=== PATIENT | female | born 1975 | race Caucasian/White ===

== ENCOUNTER 2021-03-29 19:58 | Emergency (ER) | payer OTHER ==
[2021-03-29] MEDS ORDERED: Acetaminophen 650 MG Supp RECTAL ONE (20:11)
--- NOTE | 2021-03-29 20:12 | EDM.PDOC ---
ED HPI GENERAL MEDICAL PROBLEM - General Chief Complaint: General Stated Complaint: LIGHTHEADED, DIZZY Time Seen by Provider: 03/29/21 20:05 Source of Information: Reports: Patient, RN Notes Reviewed - History of Present Illness INITIAL COMMENTS - FREE TEXT/NARRATIVE: Nedra presents today for complaints of generalized body aches, weakness, not able to do anything because she feels so bad. She also reports nausea, vomiting off and on the past 3 to 5 days. She was seen in [facility] on 02/19/2021 for exposure to COVID. Patient states she is so weak she almost passed out when presenting to the emergency room. Patient was assisted to a wheelchair and to room. No respiratory distress noted, respirations even and unlabored, skin/lips pink with no sign fo cyanosis or hard work of breathing. Patient states she has not been vaccinated for COVID. general body pain Pain Score (Numeric/FACES): 9 - Related Data Allergies Allergy/AdvReac Type Severity Reaction Status Date / Time No Known Allergies Allergy Verified 03/29/21 20:09 Home Meds: Home Meds Acetaminophen 1 - 2 tab PO BEDTIME 03/29/21 [History] Dicyclomine [Bentyl] 1 tab PO DAILY 03/29/21 [History] Ibuprofen 1 tab PO DAILY 03/29/21 [History] Multivitamin 1 tab PO DAILY 03/29/21 [History] Promethazine [Phenergan] 1 tab PO Q4H PRN 03/29/21 [History] Spironolactone [Aldactone] 1 tab PO BID 03/29/21 [History] Tretinoin [Retin-A] 1 dose TOP BEDTIME 03/29/21 [History] ED ROS GENERAL - Review of Systems Review Of Systems: See Below Constitutional: Reports: Fever, Malaise, Weakness, Fatigue HEENT: Reports: No Symptoms Respiratory: Reports: Cough. Denies: Shortness of Breath, Wheezing, Pleuritic Chest Pain, Sputum, Hemoptysis Cardiovascular: Reports: No Symptoms Endocrine: Reports: No Symptoms GI/Abdominal: Reports: Nausea, Vomiting. Denies: Abdominal Pain, Black Stool, Bloody Stool, Constipation, Diarrhea, Distension, Hematochezia : Reports: No Symptoms Musculoskeletal: Reports: No Symptoms Skin: Reports: No Symptoms Neurological: Reports: No Symptoms Psychiatric: Reports: No Symptoms Hematologic/Lymphatic: Reports: No Symptoms Immunologic: Reports: No Symptoms ED EXAM, GENERAL - Physical Exam Exam: See Below Exam Limited By: No Limitations General Appearance: Alert, WD/WN, Anxious Eye Exam: Bilateral Eye: Normal Inspection, PERRL Ears: Normal External Exam, Normal Canal, Hearing Grossly Normal, Normal TMs Nose: Normal Inspection, Normal Mucosa, No Blood Throat/Mouth: Normal Inspection, Normal Lips, Normal Teeth, Normal Gums, Normal Oropharynx, Normal Voice, No Airway Compromise Head: Atraumatic, Normocephalic Neck: Normal Inspection, Supple, Non-Tender, Full Range of Motion. No: Lymphadenopathy (R), Lymphadenopathy (L) Respiratory/Chest: No Respiratory Distress, Lungs Clear, Normal Breath Sounds, N o Accessory Muscle Use, Chest Non-Tender. No: Crackles, Rales, Rhonchi, Wheezing, Stridor Cardiovascular: Normal Peripheral Pulses, Regular Rate, Rhythm, No Edema, No Gallop, No Murmur, No Rub Peripheral Pulses: 4+: Radial (L), Radial (R), Dorsalis Pedis (L), Dorsalis Pedis (R) GI/Abdominal: Normal Bowel Sounds, Soft, Non-Tender, No Organomegaly, No Distention, No Abnormal Bruit, No Mass, Other (obese). No: Guarding, Rigid, Rebound, Tender Back Exam: Normal Inspection, Full Range of Motion. No: CVA Tenderness (R), CVA Tenderness (L) Extremities: Normal Inspection, Normal Range of Motion, Non-Tender, No Pedal Edema, Normal Capillary Refill Neurological: Alert, Oriented, No Motor/Sensory Deficits Psychiatric: Anxious Skin Exam: Warm, Dry, Intact, Normal Color, No Rash Lymphatic: No Adenopathy #1 Interpretation EKG Date: 03/29/21 Time: 19:59 Rhythm: Other (NSR to sinus tach, patient has fever, +COVID) Rate (Beats/Min): 100 [place]: Normal P-Wave: Present QRS: Normal ST-T: Normal QT: Normal Comparison: NA - No Prior EKG Course - Vital Signs Last Recorded V/S: Last Vital Signs Temp 38.7 C H 03/29/21 20:12 Pulse 98 03/29/21 20:33 Resp 26 H 03/29/21 20:33 BP 140/80 03/29/21 20:33 Pulse Ox 93 L 03/29/21 20:33 - Orders/Labs/Meds Orders: Active Orders 24 hr Category Date Time Status EKG 12 Lead [EK] Routine Ther 03/29/21 21:18 Ordered Labs: Laboratory Tests 03/29/21 03/29/21 03/29/21 Range/Units 20:13 20:30 20:30 WBC 6.9 (4.5-11.0) K/uL RBC 4.20 (3.30-5.50) M/uL Hgb 13.2 (12.0-15.0) g/dL Hct 38.8 (36.0-48.0) % MCV 92 (80-98) fL MCH 31 (27-31) pg MCHC 34 (32-36) % Plt Count 174 (150-400) K/uL Neut % (Auto) 84.8 H (36-66) % Lymph % (Auto) 12.2 L (24-44) % [place] % (Auto) 2.6 (2-6) % Eos % (Auto) 0.0 L (2-4) % Baso % (Auto) 0.4 (0-1) % Sodium 134 L (140-148) mmol/L Potassium 3.2 L (3.6-5.2) mmol/L Chloride 94 L (100-108) mmol/L Carbon Dioxide 29 (21-32) mmol/L Anion Gap 14.2 H (5.0-14.0) mmol/L BUN 7 (7-18) mg/dL Creatinine 1.0 (0.6-1.0) mg/dL Est Cr Clr Drug Dosing 67.91 mL/min Estimated GFR (MDRD) > 60 (>60) Glucose 111 H (74-106) mg/dL Calcium 7.8 L (8.5-10.1) mg/dL SARS CoV-2 RNA Rapid TESSA Positive H Positive COVID, no leukocytosis noted. No signs of sepsis. Patient will be discharged to home. Meds: Medications Discontinued Medications Generic Name Dose Route Start Last Admin Trade Name Freq PRN Reason Stop Dose Admin Acetaminophen 650 mg 03/29/21 20:11 03/29/21 21:12 Acetaminophen 650 Mg Supp RECTAL 03/29/21 20:12 650 mg NOW ONE Administration Ondansetron HCl 4 mg 03/29/21 20:36 03/29/21 21:12 Ondansetron 4 Mg Tab.Dis PO 03/29/21 20:37 4 mg ONETIME ONE Administration - Re-Assessments/Exams Free Text/Narrative Re-Assessment/Exam: 03/29/21 21:[address] Arriaga, no acute findings noted. He is in agreement with plan. Patient notified of lab results. All her questions were answered. She will be discharged to home. Departure - Departure Time of Disposition: 20:53 Disposition: Home, Self-Care 01 Condition: Good Clinical Impression: COVID-19 - Discharge Information *PRESCRIPTION DRUG MONITORING PROGRAM REVIEWED*: Not Applicable *COPY OF PRESCRIPTION DRUG MONITORING REPORT IN PATIENT DEREK: Not Applicable Instructions: COVID-19: What Your Test Results Mean - [facility] (11/24/2019), 10 Things You Can Do to Manage Your COVID-19 Symptoms at Home - [facility] (01/09/2021), COVID-19: How to Protect Yourself and Others - [facility], COVID-19: Quarantine vs. Isolation - [facility] (06/12/2020), COVID-19: What to Do If You Are Sick- [facility] (09/10/2020) Referrals: PCP,None [Primary Care Provider] - Forms: ED Department Discharge Additional Instructions: You have been evaluated and treated for Positive COVID. COVID positive test today 03/29/2021. Potassium slightly low at 3.6, eat a banana daily and drink one gatorade per day. Return to home, quarantine for 10 days starting today. Take tylenol 1000mg by mouth every 8 hours for fever and pain. Walk around every 30 minutes during the day. Get fresh air and sunshine away from others. Eat protein and stay hydrated. You can take ondansetron 4mg by mouth as needed for nausea. Follow up with your primary provider for ongoing concerns. Return to the emergency room for respiratory distress, lips turning blue or other concerns. Sepsis Event Note (ED) - Focused Exam Vital Signs: Vital Signs Temp Pulse Resp BP Pulse Ox 03/29/21 20:33 98 26 H 140/80 93 L 03/29/21 20:12 38.7 C H 98 23 H 103/69 98 03/29/21 20:10 38.7 C H 98 23 H 103/69 98 - My Orders Last 24 Hours: My Active Orders 03/29/21 21:18 EKG 12 Lead [EK] Routine - Assessment/Plan Last 24 Hours: My Active Orders 03/29/21 21:18 EKG 12 Lead [EK] Routine Assessment:: COVID-19 Plan: Patient evaluated and treated for Positive COVID. COVID positive test today 03/29/2021. Potassium slightly low at 3.6, eat a banana daily and drink one gatorade per day. Return to home, quarantine for 10 days starting today. Take tylenol 1000mg by mouth every 8 hours for fever and pain. Walk around every 30 minutes during the day. Get fresh air and sunshine away from others. Eat protein and stay hydrated. You can take ondansetron 4mg by mouth as needed for nausea. Follow up with your primary provider for ongoing concerns. Return to the emergency room for respiratory distress, lips turning blue or other concerns.
[2021-03-29] MEDS ORDERED: Ondansetron 4 MG Tab.DIS PO ONE (20:36)
== END 2021-03-29 21:30 | disposition home or self-care (01) ==
LOC: JP.ED 19:58
DX: U07.1 COVID-19 (principal)
CPT/HCPCS: 36415; 80048; 85025; 87635; 93005; 99285; A9270; U0002

== ENCOUNTER 2023-10-03 02:16 | Emergency (ER) | payer OTHER ==
[2023-10-03 02:25] LABS: BASOPHILS ABSOLUTE AUTO 0.05 K/uL (0.00-0.10); BASOPHILS PERCENT AUTO 0.5 % (0.1-1.3); EOSINOPHILS ABSOLUTE AUTO 0.11 K/uL (0.00-0.40); EOSINOPHILS PERCENT AUTO 1.1 % (0.0-5.4); HEMATOCRIT 39.1 % (34.3-46.0); HEMOGLOBIN 13.4 g/dL (11.2-15.5); IMMATURE GRAN ABSOLUTE AUTO 0.07 K/uL (0.00-0.23); IMMATURE GRAN PERCENT AUTO 0.7 % (0.0-0.7); LYMPHOCYTES ABSOLUTE AUTO 2.48 K/uL (0.8-3.3); LYMPHOCYTES PERCENT AUTO 24.9 % (11.4-47.7); MEAN CORPUSCULAR HEMOGLOBIN 31.2 pg (31.6-35.5); MEAN CORPUSCULAR HGB CONC 34.3 g/dL (31.6-35.5); MEAN CORPUSCULAR VOLUME 91.1 fL (81.4-99.0); MONOCYTES ABSOLUTE AUTO 0.82 K/uL (0.20-0.90); MONOCYTES PERCENT AUTO 8.2 % (3.3-12.6); NEUTROPHILS ABSOLUTE AUTO 6.41 K/uL (1.0-7.6); NEUTROPHILS PERCENT AUTO 64.6 % (40.0-78.1); PLATELET COUNT,PLT 237 K/uL (130-375); RED BLOOD CELL COUNT 4.29 M/uL (3.77-5.24); WHITE BLOOD CELL COUNT,WBC 9.9 K/uL (3.2-11.0)
[2023-10-03] MEDS: Sodium Chloride 0.9% 1,000 ML IV ONE (02:25)
[2023-10-03 02:48] LABS: A/G RATIO 0.7 (1.2-2.2); ALANINE AMINOTRANSFERASE,ALT 28 U/L (12-78); ALBUMIN 3.4 g/dL (3.4-5.0); ALKALINE PHOSPHATASE 105 U/L (46-116); ASPARTATE AMNIOTRANSFERASE,AST 27 U/L (15-37); BILIRUBIN TOTAL 0.4 mg/dL (0.2-1.0); BLOOD UREA NITROGEN,BUN 21 mg/dL (7-18); C-REACTIVE PROTEIN 0.84 mg/dL (<0.50); CARBON DIOXIDE,CO2 26 mmol/L (21-32); CHLORIDE,CL 102 mmol/L (100-108); CREATININE 1.2 mg/dL (0.6-1.0); EST CRCL DRUG DOSING (CG) 56.97 mL/min; ESTIMATED GFR 57 mL/min (>60); GLUCOSE RANDOM 150 mg/dL (74-106); MAGNESIUM 1.9 mg/dL (1.8-2.4); SODIUM,NA 139 mmol/L (140-148); TROPONIN I HIGH SENSITIVITY < 4.0 pg/mL (<=60.3)
[2023-10-03 03:16] LABS: APPEARANCE,URINE SLIGHTLY CLOUDY (CLEAR); BILIRUBIN,URINE NEGATIVE (NEGATIVE); COLOR,URINE YELLOW (YELLOW); GLUCOSE,URINE NEGATIVE (NEGATIVE); KETONES,URINE NEGATIVE (NEGATIVE); LEUKOCYTE ESTERASE,URINE NEGATIVE (NEGATIVE); NITRITE,URINE NEGATIVE (NEGATIVE); OCCULT BLOOD,URINE TRACE-INTACT (NEGATIVE); PH,URINE 5.5 (5.0-8.0); PROTEIN,URINE NEGATIVE (NEGATIVE); UROBILINOGEN,URINE 0.2 EU/dL (0.2-1.0)
[2023-10-03 03:21] LABS: AMORPHOUS SEDIMENT,URINE NOT SEEN; AMPHETAMINES SCREEN, URINE NEGATIVE (NEGATIVE); BACTERIA,URINE FEW; BARBITURATE SCREEN,URINE NEGATIVE (NEGATIVE); BENZODIAZEPINES SCREEN,URINE NEGATIVE (NEGATIVE); EPITHELIAL CELLS,URINE FEW; METHADONE SCREEN, URINE NEGATIVE (NEGATIVE); METHAMPHETAMINES SCREEN, URINE NEGATIVE (NEGATIVE); MUCUS,URINE RARE; OXYCODONE SCREEN,URINE NEGATIVE (NEGATIVE); PROPOXYPHENE SCREEN,URINE NEGATIVE (NEGATIVE); THC SCREEN,URINE 50 NG/ML NEGATIVE (NEGATIVE); WBC,URINE 0-5 (0-5)
[2023-10-03] MEDS: Iopamidol 612 MG/ML 100 ML Bottle IV STA (03:33)
[2023-10-03] MEDS: Sodium Chloride 0.9% 80 ML IV STA (03:33)
[2023-10-03] MEDS: Lidocaine 1% with EPINEPHrine 1:100,000 20 ML MDV INJECT ONE (03:45)
[2023-10-03] MEDS: Ketorolac 15 MG/ML SDV IVPUSH ONE (03:45)
[2023-10-03] MEDS: Lidocaine 1% with EPINEPHrine 1:100,000 20 ML MDV ONE (05:07)
== END 2023-10-03 06:19 | disposition home or self-care (01) ==
LOC: JP.ED 02:16
DX: S01.81XA Laceration without foreign body of other part of head, initial encounter (principal); S50.02XA Contusion of left elbow, initial encounter; S80.02XA Contusion of left knee, initial encounter; Z88.6 Allergy status to analgesic agent; R55 Syncope and collapse; Z79.899 Other long term (current) drug therapy; W18.30XA Fall on same level, unspecified, initial encounter
CPT/HCPCS: 12015; 36415; 51702; 70450; 71260; 72125; 73080; 73562; 74177; 76377; 80053; 80305; 80307; 81001; 81025; 83605; 83690; 83735; 84484; 85025; 85379; 85610; 86140; 87040; 93005; 96361; 96374; 99285; J1885; J3490; J7030; Q9967; 12054; 93010; 99284